=== PATIENT | male | born 1985 | race Two or more races ===

== ENCOUNTER 2020-02-26 19:26 | Emergency (ER) | payer OTHER ==
[~2020-02-26] VITALS: Ht 175.3 cm; Wt 78.9 kg
== END 2020-02-26 22:32 | disposition home or self-care (01) ==
LOC: ER 19:26
DX: G89.11 Acute pain due to trauma (principal); M25.561 Pain in right knee; H65.192 Other acute nonsuppurative otitis media, left ear

== ENCOUNTER 2021-12-15 18:07 | Emergency (ER) | payer OTHER ==
[~2021-12-15] VITALS: Ht 177.8 cm; Wt 73.5 kg
[2021-12-15] MEDS ORDERED: ZITHROMAX500 MG PO (20:36)
[2021-12-15] MEDS ORDERED: DOLOGEN CAPLET1 EACH PO (20:36)
== END 2021-12-15 20:40 | disposition home or self-care (01) ==
LOC: ER 18:07
DX: J06.9 Acute upper respiratory infection, unspecified (principal); Z20.822 Contact with and (suspected) exposure to COVID-19